=== PATIENT | female | born 1980 | race Two or more races ===

== ENCOUNTER 2017-03-22 09:57 | Emergency (ER) | payer BC ==
[~2017-03-22] VITALS: Ht 175.3 cm; Wt 90.5 kg
[2017-03-22] MEDS ORDERED: KETOROLAC 30 MG/1 ML IM ONE (10:30)
[2017-03-22] MEDS ORDERED: KETOROLAC 30 MG/1 ML ONE (10:34)
[2017-03-22 11:12] VITALS: BP 130/89
== END 2017-03-22 11:14 | disposition home or self-care (01) ==
LOC: ED 10:23
DX: M54.12 Radiculopathy, cervical region (principal)
CPT/HCPCS: 72050; 96372; 99284; J1885